=== PATIENT | female | born 1985 | race Hispanic/Latino ===

== ENCOUNTER 2018-03-15 07:55 | Outpatient (CLI) | payer OTHER ==
--- NOTE | 2018-03-15 11:49 | ULT ---
PELVIC ULTRASOUND WITH DOPPLER: HISTORY: Left pelvic pain. TECHNIQUE: Transabdominal, transvaginal, bazan-scale, color-flow, and spectral Doppler. FINDINGS: The uterus measures 8 x 4.4 x 5.7 cm without focal mass or endometrial fluid. The endometrium measur es 9 mm in thickness. The right ovary measures 2.7 x 2.4 x 2.9 cm, and the left ovary measures 3 x 2.4 x 2.5 cm. Flow is d emonstrated to both ovaries. There is a 2.3 cm in the left ovary. There is a small amount of free f luid adjacent to the left ovary. IMPRESSION: No significant abnormalities identified. POS: [facility]
== END 2018-03-15 07:56 | disposition home or self-care (01) ==
LOC: BICULT 07:55
DX: R10.2 Pelvic and perineal pain (principal)
CPT/HCPCS: 76856